=== PATIENT | female | born 1930 | race African-American/Black ===

== ENCOUNTER 2018-06-05 12:38 | Observation (INO) | payer MEDICARE, MEDICAID ==
[2018-06-05] MEDS ORDERED: Pantoprazole 40 MG VIAL ONE (14:52)
[2018-06-05] MEDS ORDERED: Ondansetron HCl/PF 4 MG/2 ML Vial ONE (14:52)
--- NOTE | 2018-06-05 15:09 | RAD ---
PORTABLE CHEST: Date: 06/05/18 PROVIDED CLINICAL HISTORY: Vomiting. FINDINGS: Cardiac silhouette appears enlarged, which may be at least partially on the basis of portable techniq ue. No focal consolidation, pleural fluid, or pneumothorax apparent. IMPRESSION: No evidence for an acute cardiopulmonary process. POS: [facility]
[2018-06-05 15:18] LABS: Hemoglobin 11.4 g/dL (12.0-16.0); Mean Corpuscular HGB CONC 32.1 g/dL (32.0-36.0); Mean Platelet Volume 9.2 fL (7.4-10.4); Platelet Count 217 thou/uL (130-400); RBC Distribution Width 13.6 % (11.5-14.5); Red Blood Cell (RBC) Count 4.76 mill/uL (4.20-5.40); White Blood Cell (WBC) Count 6.3 thou/uL (4.8-10.8)
[2018-06-05 15:36] LABS: ALT (SGPT) 8 U/L (8-55); AST (SGOT) 16 U/L (5-34); Albumin 4.1 g/dL (3.4-4.8); Alkaline Phosphatase 91 U/L (40-150); Anion Gap 13 mmol/L (10-20); BUN (Urea Nitrogen) 15 mg/dL (9.8-20.1); Bilirubin, Total 0.4 mg/dL (0.2-1.2); Calc. Creatinine Clearance 0 mL/min (70-130); Carbon Dioxide 27 mmol/L (23-31); Chloride 107 mmol/L (98-107); Estimated GFR-MDRD 60; Globulin 3.4 g/dL (2.4-3.5); Glucose 89 mg/dL (83-110); Lipase 18 U/L (8-78); Protein, Total 7.5 g/dL (6.0-8.3); Sodium 143 mmol/L (136-145)
[2018-06-05 15:39] LABS: #Basophils 0.1 thou/uL (0.0-0.2); #Lymphocytes 1.3 thou/uL (1.20-3.40); #Monocytes 0.2 thou/uL (0.11-0.59); #Neutrophils 4.7 thou/uL (1.40-6.50); %Basophils 1.2 % (0.0-1.0); %Eosinophils 0.3 % (0.0-10.0); %Lymphocytes 20.6 % (21.0-51.0); %Monocytes 3.5 % (0.0-10.0); %Neutrophils 74.4 % (42.0-75.0); Anisocytosis SLIGHT = 6-15 cells (100X) (0-5/hpf); CKMB 1.5 ng/mL (0-6.6); MDiff Complete? YES; PLT Morphology Comment Appears Adequate; Troponin I Less than 0.010 ng/mL (< 0.028)
--- NOTE | 2018-06-05 18:47 | PDOC.FPRHP ---
- History of Present Illness Chief Complaint: Vomiting History of Present Illness: Ms. Yusuf presents for vomiting, 2 days duration. Vomit pink and dark. Reports nausea, vomiting, decreased appetite, lightheaded upon standing. Denies fever, chills, diarrhea, abdominal pain. Takes aspirin daily. Never had GI bleed in past. Takes iron supplements. Last BM this morning was normal. Has not taken home BP meds since yesterday d/t vomiting. Last vomiting episode this morning en route to ED. Currently denies nausea. ED Course: zofran, IV protonix, 500 mL bolus, 10 mg enalapril - Allergies/Adverse Reactions Allergies Allergy/AdvReac Type Severity Reaction Status Date / Time No Known Allergies Allergy Verified 06/05/18 22:38 - Home Medications Medication Instructions Recorded Confirmed Type Aspirin [Ecotrin] 81 mg PO DAILY 06/05/18 06/05/18 History Enalapril Maleate 20 mg PO BID 06/05/18 06/05/18 History Lovastatin [Mevacor] 20 mg PO HS 06/05/18 06/05/18 History - History PMHx:HTN, HLD PSHx: hernia repair in the 80s FHx: noncontributory Social: Lives with daughter in [facility]. Splits time between here and living with son in [place]. Ambulates with no difficulty. Denies tobacco, alcohol, drug use. - Review of Systems General: reports: weight/appetite/sleep changes (decreased appetite, oral intake ). denies: fever/chills Eyes: denies: eye pain, vision changes ENT: denies: nasal congestion, rhinorrhea Respiratory: denies: cough, shortness of breath Cardiovascular: reports: other (lightheaded upon standing). denies: chest pain , palpitation, edema Gastrointestinal: reports: nausea, vomiting. denies: diarrhea, constipation, abdominal pain Genitourinary: denies: incontinence, dysuria Skin: denies: rashes, lesions Musculoskeletal: denies: pain, swelling Neurological: denies: syncope, seizure Psychological: denies: anxiety, depression - Vital signs BP: 208/59 HR: 59 RR: 19 Tmax: 98.1 Pox: 99% on RA Wt: 70 kg - Physical Exam Constitutional: NAD, awake, alert and oriented HEENT: normocephalic and atraumatic, PERRLA, EOMI, grossly normal vision, grossly normal hearing, normal nasal mucosa, oropharynx clear, other (MM dry) Neck: supple, trachea midline, no LAD, no JVD, no thyromegaly Heart: RRR, normal S1/S2, pulses present, no edema Lungs: CTAB, no respiratory distress, good air movement, no rales/rhonchi, no wheezing Abdomen: soft, non-tender, bowel sounds present, no masses/distention Musculoskeletal: normal structure, normal tone, ROM grossly normal Neurological: no focal deficit Skin: no rash/lesions, capillary refill <2 seconds Heme/Lymphatic: no unusual bruising or bleeding Psychiatric: normal mood and affect, intact recent and remote memory FMR H&P: Results - Labs Result Diagrams: 06/05/18 15:08 06/05/18 15:08 Lab results: WBC 6.3 thou/uL (4.8-10.8) 06/05/18 15:08 Hgb 11.4 g/dL (12.0-16.0) L 06/05/18 15:08 Hct 35.7 % (36.0-47.0) L 06/05/18 15:08 MCV 75.0 fL (78.0-98.0) L 06/05/18 15:08 Plt Count 217 thou/uL (130-400) 06/05/18 15:08 Neutrophils % 74.4 % (42.0-75.0) 06/05/18 15:08 Sodium 143 mmol/L (136-145) 06/05/18 15:08 Potassium 4.0 mmol/L (3.5-5.1) 06/05/18 15:08 Chloride 107 mmol/L (98-107) 06/05/18 15:08 Carbon Dioxide 27 mmol/L (23-31) 06/05/18 15:08 BUN 15 mg/dL (9.8-20.1) 06/05/18 15:08 Creatinine 1.04 mg/dL (0.6-1.1) 06/05/18 15:08 Glucose 89 mg/dL (83-110) 06/05/18 15:08 Calcium 10.0 mg/dL (7.8-10.44) 06/05/18 15:08 Total Bilirubin 0.4 mg/dL (0.2-1.2) 06/05/18 15:08 AST 16 U/L (5-34) 06/05/18 15:08 ALT 8 U/L (8-55) 06/05/18 15:08 Alkaline Phosphatase 91 U/L (40-150) 06/05/18 15:08 CK-MB (CK-2) 1.5 ng/mL (0-6.6) 06/05/18 15:08 Serum Total Protein 7.5 g/dL (6.0-8.3) 06/05/18 15:08 Albumin 4.1 g/dL (3.4-4.8) 06/05/18 15:08 Lipase 18 U/L (8-78) 06/05/18 15:08 FMR H&P: A/P - Problem List (1) Intractable nausea and vomiting Current Visit: Yes Status: Acute Code(s): R11.2 - NAUSEA WITH VOMITING, UNSPECIFIED (2) Hypertensive urgency Current Visit: Yes Status: Acute Code(s): I16.0 - HYPERTENSIVE URGENCY (3) Microcytic anemia Current Visit: Yes Status: Acute Code(s): D50.9 - IRON DEFICIENCY ANEMIA, UNSPECIFIED - Plan 88 yo F with PMH of HTN, HLD that presents for nausea/vomiting. Intractable N/V with possible GI bleed - Suspected upper GI bleed d/t pt history. Pt hemodynamically stable. No vomiting since presentation. If vomits again will check for blood. Will trend H/ H. - FOBT ordered - zofran prn - continue IV protonix - hold home aspirin - IVF LR @ 110 Hypertensive urgency - BPs systolic 200s in ED - hydralazine prn - hx of HTN. Will restart home enalapril Microcytic anemia - Hgb 11.4 on admission. unknown baseline - on home iron supplements - monitor on am CBC Ppx: SCDs, IV protonix Code: FULL Diet: NPO Dispo: admit to telemetry for observation FMR H&P: Upper Level - Pertinent history 88F p/w one day history of N/V. She has vomited 10+ times since symptom onset. Patient reports pink tinged vomit on several occasions this morning. She denies hematochezia and melena and has no history of GI bleed, H. pylori, PUD, or esophageal varices. She take iron PO for an unknown reason. She was given zofran in ER and reports her nausea has resolved. She has also been unable to take her PO antihypertensive medications for over 24 hours now. ER: 8 mg zofran, IV protonix, 500 mL NS, 10 mg enalapril x 2 - Pertinent findings Vitals: 126/98 mmHg 62 bpm 18 RR 100% on RA 97.8F Gen: A&Ox3; in no acute distress CV: RRR, no murmurs Pulm: CTA-B GI: no guarding; no tenderness to palpation; no hepatosplenomegaly Skin: normal turgor; no rashes or lesions H.4 BUN: 15 Cr: 1.04 CXR: normal EKG: motion artifact but grossly normal rate - Plan Date/Time: 06/05/18 8058 1. Intractable N/V -possible Lexie-Enriquez tear due to pink tinged sputum -hemodynamically stable, LFTs normal, BUN/Cr ratio normal -symptomatic control with zofran -trend H/H and monitor for blood in emesis and stool -FOBT pending -IV protonix BID -continue IVF 2. Hypertensive urgency -systolic BP 200s in ED; controlled with Enalapril in ED -hydralazine prn -continuehome enalapril 3. Microcytic anemia -Hgb 11.4 on admission -unknown etiology I, Brad Rollins, have evaluated this patient and agree with findings/plan as outlined by product development intern resident. Pertinent changes/additions are listed here. Attending Addendum - Attending Addendum Date/Time: 06/05/18 4819 I personally evaluated the patient and discussed the management with Dr. Lane /Ayo. I agree with the History, Examination, Assessment and Plan documented above with any addition or exceptions noted below.
[2018-06-05] MEDS ORDERED: hydrALAZINE 20 MG/ML VIAL ONE (18:48)
[2018-06-05] MEDS ORDERED: Acetaminophen 325 MG TAB PO PRN (20:31)
[2018-06-05] MEDS ORDERED: Ondansetron ODT 4 MG TAB PO PRN (20:31)
[2018-06-05] MEDS ORDERED: Ondansetron HCl/PF 4 MG/2 ML Vial IVP PRN (20:31)
[2018-06-05] MEDS: Lactated Ringer's 1,000 ML IV SCH (20:47)
[2018-06-05] MEDS: Pantoprazole 40 MG VIAL IVP SCH (20:54)
[2018-06-05] MEDS: hydrALAZINE 20 MG/ML VIAL SLOW IVP PRN (21:55)
[2018-06-05 23:16] LABS: INR-International Normal Ratio 1.1; PTT 26.4 SEC (22.9-36.1); Prothrombin Time 14.3 SEC (12.0-14.7)
[2018-06-06 04:04] LABS: #Lymphocytes 1.1 thou/uL (1.20-3.40); #Monocytes 0.3 thou/uL (0.11-0.59); #Neutrophils 5.5 thou/uL (1.40-6.50); %Basophils 0.4 % (0.0-1.0); %Eosinophils 0.3 % (0.0-10.0); %Lymphocytes 15.9 % (21.0-51.0); %Monocytes 4.5 % (0.0-10.0); Hemoglobin 10.3 g/dL (12.0-16.0); Mean Corpuscular HGB CONC 32.6 g/dL (32.0-36.0); Mean Corpuscular Hemoglobin 24.5 pg (27.0-31.0); Mean Corpuscular Volume 75.1 fL (78.0-98.0); Mean Platelet Volume 9.9 fL (7.4-10.4); Platelet Count 174 thou/uL (130-400); RBC Distribution Width 13.6 % (11.5-14.5); Red Blood Cell (RBC) Count 4.23 mill/uL (4.20-5.40)
[2018-06-06 04:32] LABS: Anion Gap 18 mmol/L (10-20); BUN (Urea Nitrogen) 15 mg/dL (9.8-20.1); Calc. Creatinine Clearance 46 mL/min (70-130); Calcium 9.3 mg/dL (7.8-10.44); Carbon Dioxide 16 mmol/L (23-31); Chloride 111 mmol/L (98-107); Estimated GFR-MDRD 69; Glucose 69 mg/dL (83-110); Potassium 3.8 mmol/L (3.5-5.1); Sodium 141 mmol/L (136-145)
--- NOTE | 2018-06-06 05:13 | PDOC.FM ---
- Subjective Subjective: Ms Yusuf is a 88yo female who presents with 2 days of nausea and vomiting with pink, dark tinged sputum. Today she is feeling better. Denies any episodes of emesis overnight. Denies nausea, CP, SOB. No other concerns. - Objective MAR Reviewed: Yes Vital Signs & Weight: Vital Signs (12 hours) Temp Pulse Resp BP Pulse Ox 06/06/18 04:07 98.7 F 68 14 145/65 H 98 06/05/18 22:30 171/72 H 06/05/18 22:13 181/77 H 06/05/18 21:55 62 205/83 H 06/05/18 20:22 98.9 F 63 18 218/84 H 100 Weight Weight 70.76 kg I&O: 06/04/18 06/05/18 06/06/18 06:59 06:59 06:59 Output Total 150 Balance -150 Result Diagrams: 06/06/18 03:36 06/06/18 03:36 <Jeannine Ball - Last Filed: 06/06/18 07:49> - Objective Vital Signs & Weight: Vital Signs (12 hours) Temp Pulse Resp BP BP Pulse Ox 06/06/18 09:21 65 157/64 H 06/06/18 07:32 98.7 F 70 15 189/79 H 99 06/06/18 04:07 98.7 F 68 14 145/65 H 98 06/05/18 22:30 171/72 H Weight Weight 70.76 kg I&O: 06/05/18 06/06/18 06/07/18 06:59 06:59 06:59 Intake Total 1014 Output Total 150 Balance 864 Result Diagrams: 06/06/18 03:36 06/06/18 03:36 <Roney Mendiola - Last Filed: 06/06/18 10:23> Phys Exam - Physical Examination Constitutional: NAD Respiratory: no wheezing, clear to auscultation bilateral Cardiovascular: RRR murmur present Gastrointestinal: soft, non-tender, positive bowel sounds Musculoskeletal: no edema, pulses present Psychiatric: normal affect, A&O x 3 Skin: cap refill <2 seconds Deviation from normal: Normal GLENYS <Jeannine Ball - Last Filed: 06/06/18 07:49> Dx/Plan (1) Hypertension Code(s): I10 - ESSENTIAL (PRIMARY) HYPERTENSION Status: Chronic (2) Hypertensive urgency Code(s): I16.0 - HYPERTENSIVE URGENCY Status: Acute (3) Intractable nausea and vomiting Code(s): R11.2 - NAUSEA WITH VOMITING, UNSPECIFIED Status: Acute (4) Microcytic anemia Code(s): D50.9 - IRON DEFICIENCY ANEMIA, UNSPECIFIED Status: Acute - Plan Plan: Ms Yusuf is an 88yo female with pmh of HTN presenting with microcytic anemia and intractable vomiting with dark pink tinged sputum concerning for possible GI bleed. Intractable N/V - Lexie-Enriquez vs GI bleed - Hemodynamically stable - Hgb 11.4-> 10.3 - FOBT ordered - Protonix 40mg IV BID - Zofran PRN - Currently NPO - Continue LR @110ml/hr - If FOBT is +, consult GI Chronic HTN - Continue home enalapril - 145/65 this AM Hypertensive urgency, resolved - Initial SBP 200's - Hydralazine PRN - Continue home Enalapril Microcytic anemia - Hgb 10.3 on admission, initially 11.4 prior to IVFs - Possibly dilutional - Obtain Iron Studies - Continue to monitor DVT ppx: SCDs Code Status: FULL <Jeannine Ball - Last Filed: 06/06/18 07:49> (1) Intractable nausea and vomiting Code(s): R11.2 - NAUSEA WITH VOMITING, UNSPECIFIED Status: Acute (2) Hypertensive urgency Code(s): I16.0 - HYPERTENSIVE URGENCY Status: Acute (3) Microcytic anemia Code(s): D50.9 - IRON DEFICIENCY ANEMIA, UNSPECIFIED Status: Acute <Roney Mendiola - Last Filed: 06/06/18 10:23> Attending Addendum - Attending Addendum Date/Time: 06/06/18 1022 I personally evaluated the patient and discussed the management with Dr. Ball. I agree with the History, Examination, Assessment and Plan documented above with any addition or exceptions noted below. Patient admitted with intractable n/v and concern for GI bleed. Her drop in Hgb is dilutional in nature, and she has no evidence of GI bleed. Reports her "pink " vomit yesterday was due to the watermelon she had eaten. She feels well today. FOBT negative. Advance diet as tolerated and if tolerating lunch well, should be stable for discharge home. <Roney Mendiola - Last Filed: 06/06/18 10:23>
[2018-06-06] MEDS: Lactated Ringer's 1,000 ML IV SCH (06:07)
[2018-06-06] MEDS: Pantoprazole 40 MG VIAL IVP SCH (07:54)
[2018-06-06 08:46] LABS: Iron 30 ug/dL (50-170); Iron Binding Capacity, Total 164 mcg/dL (265-497)
[2018-06-06] MEDS: hydrALAZINE 20 MG/ML VIAL SLOW IVP PRN (11:38)
[2018-06-06 11:52] VITALS: TEMP 98.1
[2018-06-06 12:37] VITALS: BP 164/70
[2018-06-06] MEDS ORDERED: Lovastatin 20 MG TAB PO SCH (21:00)
--- NOTE | 2018-06-07 04:47 | DIS-2 ---
DATE OF ADMISSION: 06/05/2018 DATE OF DISCHARGE: 06/06/2018 RESIDENT: Jeannine Ball, PGY1. ADMITTING ATTENDING: Roney Mendiola MD DISCHARGE ATTENDING: Roney Mendiloa MD CONSULTS: None. PROCEDURES: None. PRIMARY DIAGNOSES: 1. Intractable nausea, vomiting. 2. Hypertensive urgency, resolved. SECONDARY DIAGNOSES: 1. Microcytic anemia. 2. Chronic hypertension. DISCHARGE MEDICATIONS: 1. Amlodipine 2.5 mg q.a.m. (new). 2. Aspirin 81 mg daily. 3. Enalapril 20 mg b.i.d. 4. Lovastatin 20 mg at bedtime. DISCONTINUED MEDICATIONS: None. HISTORY OF PRESENT ILLNESS AND HOSPITAL COURSE: Ms. Yusuf is an 88-year-old female who presented with nausea and vomiting of 2 days' duration, emesis with pink and dark concerning for acute GI bleed. She was also found to be in hypertensive urgency with systolic blood pressures in the 200s, HTN urgency resolved with p.r.n. hydralazine and restarting her home enalapril. Her pressure continued to be elevated throughout her hospital stay, therefore amlodipine 2.5 mg was added in addition to her home enalapril prior to discharge. Fpr her intractable nausea and vomiting, she had no episodes of emesis during her hospital stay. FOBT was negative. She remembered that she had eaten a watermelon that day and could have caused the pink tinged emesis. She was noted to have microcytic anemia on her labs. Iron studies were obtained showing decreased ferritin, likely a result of anemia of chronic disease. DISPOSITION: Stable. DISCHARGE INSTRUCTIONS: 1. Location: Home. 2. Diet: Low sodium. 3. Activity: No restrictions. 4. Follow up with PCP within 3 days. [facility]
--- NOTE | 2018-06-12 11:55 | EKG ---
Test Reason : Blood Pressure : / mmHG Vent. Rate : 103 BPM Atrial Rate : 036 BPM P-R Int : 000 ms QRS Dur : 090 ms QT Int : 460 ms P-R-T Axes : 000 049 003 degrees QTc Int : 602 ms Sinus rhythm with motion artifact , limited interpretation possible Voltage criteria for left ventricular hypertrophy Nonspecific ST abnormality Prolonged QT Abnormal ECG Ventricular rate corrected to 55 bpm Confirmed by STEVE NUNES DO ([id number]), supervising editor news reel [employer] ([id number]) on 06/12/2018 11:55:01 AM Referred By: Confirmed By:STEVE NUNES DO
== END 2018-06-06 14:22 | disposition home or self-care (01) ==
LOC: ERS 12:38 → 2SW 17:34
PROVIDERS: ADMIT Student in an Organized Health Care Education/Training Program; ATTEND Student in an Organized Health Care Education/Training Program
DX: R11.2 Nausea with vomiting, unspecified (principal); I16.0 Hypertensive urgency; I10 Essential (primary) hypertension; E78.5 Hyperlipidemia, unspecified; D50.9 Iron deficiency anemia, unspecified; Z79.82 Long term (current) use of aspirin; Z79.899 Other long term (current) drug therapy
CPT/HCPCS: 71045; 80048; 80053; 82274; 82553; 82728; 83540; 83550; 83690; 84484; 85025 ×2; 85610; 85730; 93005; 96361 ×3; 96374; 96375; 96376 ×2; 99285; G0378 ×2; 36415; C9113; J0360; J2405